=== PATIENT | male | born 1980 | race Caucasian/White ===

== ENCOUNTER 2017-09-01 12:05 | Inpatient (IN) | payer MEDICAID ==
[2017-09-01] VITALS (15 sets, daily range): BP systolic 91–113; BP diastolic 55–72; BMI 19.6
[~2017-09-01] VITALS: Ht 185.4 cm; Wt 67.6 kg
--- NOTE | ~2017-09-01 | CN ---
PATIENT NAME:ELA MCALLISTER MEDICAL RECORD: [id number] : 84 LOCATION:[id number] ADMIT DATE: 09/01/17 ACCOUNT: [id number] CONSULTING PHYSICIAN: ALICIA SANDS MD REFERRING PHYSICIAN: MORIAH POPE MD DATE OF CONSULTATION: 09/02/2017 DIAGNOSES: 1. Altered mental status. 2. Atrial fibrillation. HISTORY OF PRESENT ILLNESS: This is a gentleman who was dropped at the ER with altered mental status. History is unknown. He was in sinus rhythm until he had a Cardenas catheter placed and he went into atrial fibrillation. He still remains in atrial fibrillation, heart rates in the 120s. PHYSICAL EXAMINATION: GENERAL APPEARANCE: Well-nourished, well-developed, appears stated age. Level of distress, comfortable. PSYCHIATRIC: Mental status, alert, normal affect. Orientation, oriented to time, place and person. EYES: Lids and conjunctiva, noninjected. No discharge, no pallor. ENT: Lips, teeth, gums, normal dentition. Oropharynx, no cyanosis, no pallor. NECK: Carotid arteries, bilateral normal upstroke, no bruits, no thrills. JUGULAR VEINS: No jugular venous pressure or distention. CERVICAL LYMPH NODES: Nontender, nonenlarged. THYROID: Not enlarged. Nontender. No nodules. LUNGS: Respiratory effort, unlabored. CHEST: Normal curvature. No thoracic deformity. No chest wall tenderness. Percussion, resonant. Auscultation, clear. No wheezes, no rales, no rhonchi. CARDIOVASCULAR: Irregularly, irregular in atrial fibrillation. EXTREMITIES: No cyanosis, no edema. Peripheral pulses, full and equal in all extremities, except as noted. No bruits appreciated. ABDOMEN: Soft, nondistended. Normal aorta. No bruit. Nontender. No masses. Liver, nontender, no hepatomegaly. Spleen, nontender, no splenomegaly. MUSCULOSKELETAL: No joint tenderness. No joint swelling. No erythema. NEUROLOGICAL: Normal gait, normal strength, normal tone. SKIN: Warm and dry. OVERALL IMPRESSION: Atrial fibrillation, very well may be substance abuse involved. We will get an echocardiogram. He has been put on Cordarone drip. This has not made a difference in the rhythm. We will use IV Cardizem to slow the rate. Further care depends upon the results of the echo and the IV Cardizem. TRANSINT:[id number] Voice Confirmation ID: [id number] DOCUMENT ID: [id number] CONSULT REPORT [id number] ELA MCALLISTER JEFFREY MD at 1325 CC: [id number] DICTATION DATE: 09/02/17 1301 CONTROLS PROJECT ENGINEER: 09/02/17 1324 DIS IN 09/04/17 [id number] [place] [address]
[2017-09-01 12:34] LABS: HEMOGLOBIN 13.7 g/dL (13.5-17.5); MCHC 36.1 g/dL (31.0-37.0); MCV 80.3 fL (80.0-100.0); RBC 4.73 10x6/uL (4.20-6.10); RDW 14.3 % (11.5-14.5); WBC 2.8 10x3/uL (4.8-10.8)
[2017-09-01 12:45] LABS: ALBUMIN 2.7 g/dL (3.4-5.0); ALKALINE PHOSPHATASE 180 U/L (46-116); ALT (SGPT) 252 U/L (10-68); BILIRUBIN - TOTAL 1.33 mg/dL (0.2-1.3); CALC OSMOLALITY 247 mosm/kg (275-300); CALCIUM 7.4 mg/dL (8.5-10.1); CARBON DIOXIDE 27.5 mmol/L (21.0-32.0); CHLORIDE - SERUM 89 mmol/L (98-107); CREATININE - SERUM 0.9 mg/dL (0.6-1.3); GLUCOSE 122 mg/dL (74-106); POTASSIUM - SERUM 4.5 mmol/L (3.5-5.1); PROTEIN - SERUM 5.9 g/dL (6.4-8.2); SODIUM 121 mmol/L (136-145); UREA NITROGEN 20 mg/dL (7-18); eGFR NON AFRICAN AMERICAN > 90 mL/min (90-120)
[2017-09-01 12:54] LABS: MAGNESIUM - SERUM 2.1 mg/dL (1.8-2.4); THYROID STIMULATING HORMONE 0.37 uIU/mL (0.36-3.74)
[2017-09-01 12:58] LABS: PLATELET COUNT 19 10x3/uL (130-400)
[2017-09-01 12:59] LABS: PLATELET ESTIMATE DECREASED
[2017-09-01 13:22] LABS: APPEARANCE HAZY (CLEAR); BILIRUBIN NEGATIVE (NEGATIVE); COLOR DY (YELLOW); GLUCOSE 250 mg/dL (NEGATIVE); KETONE NEGATIVE (NEGATIVE); NITRITE NEGATIVE (NEGATIVE); PROTEIN NEGATIVE (NEGATIVE); SPECIFIC GRAVITY 1.015 (1.005-1.020); UDS - AMPHET NEGATIVE QUAL (NEGATIVE); UDS - BARB NEGATIVE QUAL (NEGATIVE); UDS - BENZO NEGATIVE QUAL (NEGATIVE); UDS - COCAINE NEGATIVE QUAL (NEGATIVE); UDS - OPIATE NEGATIVE QUAL (NEGATIVE); UDS - PCP NEGATIVE QUAL (NEGATIVE); UDS - THC POSITIVE QUAL (NEGATIVE)
[2017-09-01 13:23] LABS: AMORPHOUS SEDIMENT >1+ /lpf (NONE SEEN); BACTERIA MANY /hpf (NONE SEEN); GRANULAR CAST 0-5 /lpf (NONE SEEN); HYALINE CAST 0-5 /lpf (NONE SEEN); MUCUS <1+ /lpf (NONE SEEN); RED CELLS - URINE RARE /hpf (0-5)
[2017-09-01 13:33] LABS: HEMATOCRIT 34.8 % (42.0-54.0); HEMOGLOBIN 12.3 g/dL (13.5-17.5); MCH 28.6 pg (26.0-34.0); MCHC 35.3 g/dL (31.0-37.0); MCV 80.9 fL (80.0-100.0); MEAN PLATELET VOLUME 9.9 fL (7.4-10.4); RDW 14.4 % (11.5-14.5); WBC 2.2 10x3/uL (4.8-10.8)
[2017-09-01 13:37] LABS: PLATELET COUNT 14 10x3/uL (130-400)
[2017-09-01 14:10] LABS: LYMPHOCYTES 35 % (15-50); MONOCYTES 22 % (2-11); NEUTROPHILS 30 % (40-80); SMUDGE CELLS 1+
[2017-09-01 14:11] LABS: BURR CELLS OCC
[2017-09-01 14:12] LABS: CRENATED CELLS 1+; ROULEAUX 1+
[2017-09-01 14:14] LABS: PLATELET ESTIMATE DECREASED
[2017-09-01 16:51] LABS: INR 1.04 (0.85-1.17); PROTIME 13.3 SECONDS (11.6-15.0)
[2017-09-01 16:59] LABS: % SATURATION 50 % (15-55); IRON 95 ug/dl (35-150); TOTAL IRON BIND CAPACITY 187 ug/dl (260-445); UNSAT IRON BIND CAPACITY 92 ug/dl (150-375)
[2017-09-01 19:23] LABS: LDH 2799 U/L (85-227)
[2017-09-01 19:24] LABS: FERRITIN 61230 ng/mL (3-244)
[2017-09-01] MEDS ORDERED: BACTRIM DS TABL1 TAB PO (20:10)
[2017-09-02] VITALS (24 sets, daily range): BP systolic 85–134; BP diastolic 62–96
[2017-09-02 06:02] LABS: ALBUMIN 2.2 g/dL (3.4-5.0); ALKALINE PHOSPHATASE 163 U/L (46-116); ALT (SGPT) 256 U/L (10-68); BILIRUBIN - TOTAL 1.15 mg/dL (0.2-1.3); CALC OSMOLALITY 255 mosm/kg (275-300); CARBON DIOXIDE 26.6 mmol/L (21.0-32.0); CHLORIDE - SERUM 94 mmol/L (98-107); CREATININE - SERUM 0.7 mg/dL (0.6-1.3); GLUCOSE 97 mg/dL (74-106); SODIUM 127 mmol/L (136-145); UREA NITROGEN 16 mg/dL (7-18); eGFR NON AFRICAN AMERICAN > 90 mL/min (90-120)
[2017-09-02 06:03] LABS: HEMATOCRIT 32.6 % (42.0-54.0); HEMOGLOBIN 11.5 g/dL (13.5-17.5); MCH 28.5 pg (26.0-34.0); MCHC 35.3 g/dL (31.0-37.0); MCV 80.7 fL (80.0-100.0); RBC 4.04 10x6/uL (4.20-6.10); RDW 14.4 % (11.5-14.5)
[2017-09-02 06:07] LABS: CALCIUM 6.6 mg/dL (8.5-10.1)
[2017-09-02 06:10] LABS: WBC 3.6 10x3/uL (4.8-10.8)
[2017-09-02 06:11] LABS: PLATELET COUNT 21 10x3/uL (130-400)
[2017-09-02 07:38] LABS: LYMPHOCYTES 12 % (15-50); MONOCYTES 6 % (2-11); NEUTROPHILS 72 % (40-80); PLATELET ESTIMATE DECREASED; PLATELET MORPHOLOGY GIANT PLTS PRESENT
[2017-09-03] VITALS (23 sets, daily range): BP systolic 80–117; BP diastolic 55–80
[2017-09-03 04:38] LABS: BASOPHILS 1.8 % (0-2); EOSINOPHILS 0 % (0-7); HEMATOCRIT 32.3 % (42.0-54.0); HEMOGLOBIN 11.5 g/dL (13.5-17.5); IMMATURE GRANULOCYTES 0.4 % (0-5); LYMPHOCYTES 57.8 % (15-50); MCH 28.7 pg (26.0-34.0); MCHC 35.6 g/dL (31.0-37.0); MCV 80.5 fL (80.0-100.0); MONOCYTES 12.5 % (2-11); NEUTROPHILS 27.5 % (40-80); RBC 4.01 10x6/uL (4.20-6.10); RDW 14.3 % (11.5-14.5)
[2017-09-03 04:40] LABS: WBC 5.6 10x3/uL (4.8-10.8)
[2017-09-03 04:42] LABS: PLATELET COUNT 28 10x3/uL (130-400)
[2017-09-03 04:51] LABS: ALBUMIN 2.1 g/dL (3.4-5.0); ALKALINE PHOSPHATASE 152 U/L (46-116); ALT (SGPT) 234 U/L (10-68); BILIRUBIN - TOTAL 0.87 mg/dL (0.2-1.3); CALC OSMOLALITY 259 mosm/kg (275-300); CARBON DIOXIDE 26.9 mmol/L (21.0-32.0); CHLORIDE - SERUM 96 mmol/L (98-107); GLUCOSE 86 mg/dL (74-106); POTASSIUM - SERUM 3.4 mmol/L (3.5-5.1); PROTEIN - SERUM 4.9 g/dL (6.4-8.2); SODIUM 130 mmol/L (136-145); UREA NITROGEN 12 mg/dL (7-18)
[2017-09-03 05:12] LABS: CALCIUM 6.8 mg/dL (8.5-10.1); CREATININE - SERUM 0.5 mg/dL (0.6-1.3); eGFR NON AFRICAN AMERICAN > 90 mL/min (90-120)
[2017-09-03 08:55] LABS: INR 0.9 (0.85-1.17); PROTIME 11.8 SECONDS (11.6-15.0)
[2017-09-03 09:19] LABS: HEPATITIS C ANTIBODY >11.0 (0.0-0.9)
[2017-09-03 11:18] LABS: HAPTOGLOBIN <10 mg/dL (34-200)
[2017-09-03] MEDS ORDERED: BUPRENORPHINE HC8 MG SL (18:33)
[2017-09-04] VITALS: BP 119/79
[2017-09-04 01:00] VITALS: BP 118/64
[2017-09-04 02:00] VITALS: BP 113/77
[2017-09-04 03:00] VITALS: BP 96/59
[2017-09-04 04:38] LABS: BASOPHILS 1.4 % (0-2); EOSINOPHILS 0 % (0-7); HEMATOCRIT 28.6 % (42.0-54.0); HEMOGLOBIN 10.3 g/dL (13.5-17.5); IMMATURE GRANULOCYTES 0.3 % (0-5); MCH 28.9 pg (26.0-34.0); MCV 80.1 fL (80.0-100.0); MONOCYTES 14.6 % (2-11); NEUTROPHILS 22.7 % (40-80); RBC 3.57 10x6/uL (4.20-6.10); RDW 14.1 % (11.5-14.5)
[2017-09-04 04:43] LABS: PLATELET COUNT 12 10x3/uL (130-400); WBC 3.6 10x3/uL (4.8-10.8)
[2017-09-04 05:46] LABS: ALBUMIN 1.9 g/dL (3.4-5.0); ALKALINE PHOSPHATASE 129 U/L (46-116); ALT (SGPT) 199 U/L (10-68); BILIRUBIN - TOTAL 0.87 mg/dL (0.2-1.3); CALC OSMOLALITY 256 mosm/kg (275-300); CARBON DIOXIDE 23.9 mmol/L (21.0-32.0); CHLORIDE - SERUM 96 mmol/L (98-107); CREATININE - SERUM 0.4 mg/dL (0.6-1.3); GLUCOSE 78 mg/dL (74-106); POTASSIUM - SERUM 3.3 mmol/L (3.5-5.1); PROTEIN - SERUM 4.3 g/dL (6.4-8.2); SODIUM 129 mmol/L (136-145); UREA NITROGEN 10 mg/dL (7-18); eGFR NON AFRICAN AMERICAN > 90 mL/min (90-120)
[2017-09-04 05:47] LABS: CALCIUM 6.7 mg/dL (8.5-10.1)
[2017-09-04 08:58] VITALS: Ht 185.4 cm; Wt 67.6 kg
[2017-09-04 09:00] VITALS: BP 109/64
[2017-09-04 10:00] VITALS: BP 94/65
[2017-09-04 10:06] LABS: INR 0.95 (0.85-1.17); PROTIME 12.3 SECONDS (11.6-15.0)
[2017-09-04 10:07] LABS: APTT 43.6 SECONDS (22.8-39.4)
[2017-09-07 14:20] LABS: F. TULARENSIS - IGG Negative (()); F. TULARENSIS - IGM Negative (())
[2017-09-07 15:23] LABS: EHRLICHIA CHAFF IGG Negative (Neg:<1:64); HGE IGG TITER Negative (Neg:<1:64); HGE IGM TITER Negative (Neg:<1:20)
[2017-09-07 18:10] LABS: RMSF IGM 0.72 index (0.00-0.89)
== END 2017-09-04 13:40 | disposition left against medical advice (07) | DRG 917 ==
LOC: D.ER 12:05 → D.EDHOLD 14:56 → D.ICU 14:56
PROVIDERS: Emergency Medicine; Internal Medicine Hematology & Oncology; Internal Medicine Nephrology
DX: T50.991A Poisoning by other drugs, medicaments and biological substances, accidental (unintentional), initial encounter (principal); J96.01 Acute respiratory failure with hypoxia; J18.9 Pneumonia, unspecified organism; R40.2223 Coma scale, best verbal response, incomprehensible words, at hospital admission; N39.0 Urinary tract infection, site not specified; E87.1 Hypo-osmolality and hyponatremia; D61.818 Other pancytopenia; I48.91 Unspecified atrial fibrillation; E11.9 Type 2 diabetes mellitus without complications; B19.20 Unspecified viral hepatitis C without hepatic coma; R41.82 Altered mental status, unspecified; R40.2353 Coma scale, best motor response, localizes pain, at hospital admission; R40.2133 Coma scale, eyes open, to sound, at hospital admission

== ENCOUNTER 2019-03-13 00:03 | Emergency (ER) | payer OTHER ==
[~2019-03-13] VITALS: Ht 185.4 cm; Wt 77.3 kg
[~2019-03-13 00:03] MED LIST: BACTRIM DS TABL1 TAB PO; BUPRENORPHINE HC8 MG SL
[2019-03-13 00:12] VITALS: Ht 185.4 cm; Wt 77.3 kg
[2019-03-13 00:15] LABS: BASOPHILS 0.1 % (0-2); EOSINOPHILS 0.7 % (0-7); HEMATOCRIT 45.3 % (42.0-54.0); HEMOGLOBIN 15.5 g/dL (13.5-17.5); IMMATURE GRANULOCYTES 0.2 % (0-5); MCH 29.9 pg (26.0-34.0); MCHC 34.2 g/dL (31.0-37.0); MCV 87.3 fL (80.0-100.0); MEAN PLATELET VOLUME 9.4 fL (7.4-10.4); MONOCYTES 7.6 % (2-11); NEUTROPHILS 61.4 % (40-80); RBC 5.19 10x6/uL (4.20-6.10); RDW 15.2 % (11.5-14.5); WBC 12.6 10x3/uL (4.8-10.8)
[2019-03-13 00:29] LABS: CALC OSMOLALITY 284 mosm/kg (275-300); CARBON DIOXIDE 31.4 mmol/L (21.0-32.0); CHLORIDE - SERUM 106 mmol/L (98-107); CREATININE - SERUM 0.8 mg/dL (0.6-1.3); GLUCOSE 115 mg/dL (74-106); POTASSIUM - SERUM 3.8 mmol/L (3.5-5.1); SODIUM 143 mmol/L (136-145); UREA NITROGEN 11 mg/dL (7-18); eGFR NON AFRICAN AMERICAN > 90 mL/min (90-120)
[2019-03-13] MEDS ORDERED: VALIUM (00:31)
[2019-03-13 00:33] LABS: ALBUMIN 3.7 g/dL (3.4-5.0); ALKALINE PHOSPHATASE 74 U/L (30-120); ALT (SGPT) 28 U/L (10-68); BILIRUBIN - TOTAL 0.58 mg/dL (0.2-1.3); PROTEIN - SERUM 7.1 g/dL (6.4-8.2)
[2019-03-13 00:42] LABS: PLATELET COUNT 165 10x3/uL (130-400)
--- NOTE | 2019-03-13 01:12 | NUR ---
PATIENT SEEN IN ER 20. PATIENT DENIES BEING SUICIDIAL OR HOMICIDAL AT THIS TIME. PATIENT DENIES EVER HAVING BEEN SUICIDIAL. HE DOES RANDOMLY SAY "STRANGE" THINGS. HE'LL SPEAK ABOUT THE PAST AND THEN SWITCH SUBJECTS. HE IS LYING ON THE BED WITH HIS ARMS CROSSED AND LEGS STRETCHED OUT AND RELAXED, HE'S NOT FIGIDITY. HOLDING EYE CONTACT WELL. SUICIDE PREVENTION SHEET WITH A 1-800 NUMBER [phone] FOR A FUTURE REFERENCE
[2019-03-13 01:28] VITALS: BP 132/87
== END 2019-03-13 01:28 | disposition home or self-care (01) ==
LOC: D.ER 00:03
PROVIDERS: Emergency Medicine
DX: F41.9 Anxiety disorder, unspecified (principal)